=== PATIENT | male | born 1980 | race Two or more races ===

== ENCOUNTER 2024-01-25 06:28 | Emergency (ER) | payer OTHER ==
[~2024-01-25] VITALS: Ht 177.8 cm; Wt 106.6 kg
[~2024-01-25 06:28] MED LIST: DEMEROL IM; GLUMETZA1000 MG; PERCOCET 7.5-31 EACH PO; PYRIDIUM DS200 MG PO; STONEX PO; TAMS0.4C PO; TORADOL60 MG IM
[2024-01-25] MEDS ORDERED: SYNJARDY 12.5-1 EACH PO (07:19)
[2024-01-25] MEDS ORDERED: LOSARTAN-HCTZ1 EAC2 PO (07:20)
[2024-01-25] MEDS ORDERED: ROSUVASTATIN CAL5 MG PO (07:20)
[2024-01-25] MEDS ORDERED: OZEMPIC0.25 MG/02 SQ (07:24)
[2024-01-25] MEDS ORDERED: KETOROLAC TROMETHAMINE 30 MG VIAL IV STA (07:43)
[2024-01-25] MEDS ORDERED: PROMETHAZINE HCL 25 MG/ML AMPUL IM STA (07:44)
[2024-01-25] MEDS ORDERED: MEPERIDINE HCL/PF 25 MG/ML VIAL IM STA (07:44)
[2024-01-25 08:42] LABS: CALCIUM 9.1 mg/dL (8.5-10.1); CREATININE SERUM 0.95 mg/dL (0.70-1.30); GFR 85.73; POTASSIUM 3.05 mEq/L (3.5-5.1)
[2024-01-25 08:49] LABS: HEMATOCRIT 45.2 % (39.0-48.0); HEMOGLOBIN 15.6 g/dL (13-16.00); MEAN CELL VOLUME 84.6 fL (80.0-100.00); MEAN CORPUSCULAR HEMOGLOBIN 29.3 pg (27.00-32.0); MEAN CORPUSCULAR HGB CONC 34.6 g/dl (32.0-36.0); PLATELET COUNT 202 K/uL (150-450); RED BLOOD COUNT 5.34 M/uL (4.00-6.00)
[2024-01-25 09:42] LABS: PH,URINE 5.5 (5.0-8.0); URINE APPEARANCE Clear; URINE BILIRRUBIN Negative (NEGATIVE); URINE BLOOD Negative; URINE COLOR Yellow; URINE LEUKOCYTE Negative; URINE NITRATE Negative; URINE PROTEIN Negative (NEGATIVE); URINE UROBILINOGEN 0.2 E.U./dl
[2024-01-25 09:43] LABS: URINE RBC 5.3 uL (0.0-20.8); URINE WBC 5.3 uL (0.0-23.2)
[2024-01-25 09:46] LABS: URINE BACTERIA 3.6 uL (0.0-1933); URINE CAST 0.14 uL (0.0-1.40); URINE EPITHELIAL CELLS 1.1 uL (0.0-38.8); URINE GLUCOSE >=1000 MG/DL (NEGATIVE); URINE KETONE 40 (NEGATIVE)
== END 2024-01-25 10:12 | disposition home or self-care (01) ==
LOC: ER 06:30
DX: N20.9 Urinary calculus, unspecified (principal); K80.20 Calculus of gallbladder without cholecystitis without obstruction; K76.0 Fatty (change of) liver, not elsewhere classified; K40.90 Unilateral inguinal hernia, without obstruction or gangrene, not specified as recurrent

== ENCOUNTER 2024-08-05 08:30 | Day surgery (SDC) | payer OTHER ==
[2024-07-30 10:52] LABS: BASO % 0.9 % (0.1-1.2); EOS % 4.3 % (0.7-7.0); HEMATOCRIT 49.7 % (40.1-51.0); HEMOGLOBIN 16.2 g/dL (13.7-17.5); LYMPH # 1.81 (1.18-3.74); LYMPH % 25.7 % (19.3-53.1); MONO # 0.46 (0.24-0.82); MONO % 6.5 % (4.7-12.5); NEUT # 4.41 (1.56-6.13); NEUT % 62.5 % (34.0-71.1); PLATELET COUNT 257 K/uL (163-369); RED BLOOD COUNT 5.79 M/uL (4.63-6.08); RED CELL DISTRIBUTION WIDTH 13.2 % (11.6-14.4)
[2024-07-30 11:08] LABS: INR 1.02; PARTIAL THROMBOPLASTIN TIME 25.6 SECONDS (22.0-34.0); PROTHROMBIN TIME 11.1 SECONDS (9.0-11.5)
[2024-07-30 11:22] LABS: PH,URINE 5.5 (5.0-8.0); URINE APPEARANCE Clear; URINE BILIRRUBIN Negative (NEGATIVE); URINE BLOOD Negative; URINE COLOR Yellow; URINE KETONE Trace (NEGATIVE); URINE LEUKOCYTE Negative; URINE NITRATE Negative; URINE PROTEIN Negative (NEGATIVE); URINE UROBILINOGEN 0.2 E.U./dl
[2024-07-30 11:26] LABS: URINE BACTERIA 6.1 uL (0.0-1933); URINE RBC 5.7 uL (0.0-20.8)
[2024-07-30 11:35] LABS: URINE CAST 0.73 uL (0.0-1.40); URINE EPITHELIAL CELLS 1.2 uL (0.0-38.8); URINE GLUCOSE >=1000 MG/DL (NEGATIVE)
[2024-07-30 12:08] LABS: ALBUMIN 4.2 gm/dL (3.4-5.0); BILIRUBIN TOTAL 0.85 mg/dL (0.3-1.2); CALCIUM 9.8 mg/dL (8.5-10.1); CREATININE SERUM 0.83 mg/dL (0.70-1.30); GFR 99.74; GLOBULINA 4.2 G/DL (2.4-3.5); POTASSIUM 4.01 mEq/L (3.5-5.1); TOTAL PROTEIN 8.4 gm/dL (6.4-8.2)
[~2024-08-05 08:30] MED LIST changes: +LOSARTAN POTASS50 MG PO; +LOSARTAN-HCTZ1 EAC2 PO; +OZEMPIC0.25 MG/02 SQ; +ROSUVASTATIN CAL5 MG PO; +SYNJARDY 12.5-1 EACH PO
[2024-08-05] MEDS ORDERED: CEFAZOLIN SODIUM 1,000 MG VIAL ONE (12:25)
[2024-08-05] MEDS ORDERED: MORPHINE SULFATE 4 MG/ML VIAL IV ONE ×2 (16:15→16:45)
== END 2024-08-05 18:10 | disposition home or self-care (01) ==
LOC: CIR.AMB 08:30
PROVIDERS: ATTEND Surgery
DX: K40.90 Unilateral inguinal hernia, without obstruction or gangrene, not specified as recurrent (principal)

== ENCOUNTER → 2024-10-22 10:34 | Outpatient (CLI) | payer OTHER ==
[2024-10-22 11:23] LABS: BASO % 0.7 % (0.1-1.2); EOS # 0.12 (0.04-0.54); EOS % 2.1 % (0.7-7.0); LYMPH # 1.61 (1.18-3.74); LYMPH % 28.1 % (19.3-53.1); MEAN PLATELET VOLUME 9.60 fl (9.4-12.4); MONO # 0.38 (0.24-0.82); MONO % 6.6 % (4.7-12.5); NEUT # 3.56 (1.56-6.13); NEUT % 62.3 % (34.0-71.1); RED CELL DISTRIBUTION WIDTH 12.9 % (11.6-14.4); URINE APPEARANCE Clear; URINE BILIRRUBIN Negative (NEGATIVE); URINE BLOOD Trace; URINE COLOR Yellow; URINE KETONE Trace (NEGATIVE); URINE LEUKOCYTE Negative; URINE NITRATE Negative; URINE PROTEIN Negative (NEGATIVE); URINE UROBILINOGEN 1.0 E.U./dl
[2024-10-22 11:24] LABS: URINE BACTERIA 7.2 uL (0.0-1933); URINE RBC 8.7 uL (0.0-20.8); URINE WBC 3.0 uL (0.0-23.2)
[2024-10-22 11:30] LABS: URINE CAST 0.00 uL (0.0-1.40); URINE EPITHELIAL CELLS 1.3 uL (0.0-38.8); URINE GLUCOSE >=1000 MG/DL (NEGATIVE)
[2024-10-22 11:58] LABS: INR 1.01
[2024-10-22 12:27] LABS: ALT/SGPT 34.0 U/L (12-78); AST/SGOT 18.0 U/L (15-37); BILIRUBIN TOTAL 1.21 mg/dL (0.3-1.2); BUN CREA RATIO 15.0 (7.0-25.0); CREATININE SERUM 0.74 mg/dL (0.70-1.30); GFR 113.87; GLOBULINA 3.9 G/DL (2.4-3.5); GLUCOSE FASTING 103.0 mg/dL (65-100); OSMOLALITY SERUM 286.0 MOSM/KG (275-295)
== END | disposition home or self-care (01) ==
LOC: LAB 10:34
PROVIDERS: ATTEND Surgery
DX: D65 Disseminated intravascular coagulation [defibrination syndrome] (principal); I10 Essential (primary) hypertension; Z01.818 Encounter for other preprocedural examination

== ENCOUNTER 2024-10-26 08:00 | Day surgery (SDC) | payer OTHER ==
[2024-10-23 10:49] VITALS: BP 107/73
[~2024-10-26] VITALS: Ht 177.8 cm; Wt 102.1 kg
[2024-10-26] MEDS ORDERED: CEFAZOLIN SODIUM 1,000 MG VIAL IV SCH (11:00)
[2024-10-26] MEDS ORDERED: SUGAMMADEX SODIUM 200 MG/2 ML VIAL IV ONE (12:00)
[2024-10-26] MEDS ORDERED: MORPHINE SULFATE 4 MG/ML VIAL IV ONE ×4 (12:15→13:10)
== END 2024-10-26 14:15 | disposition home or self-care (01) ==
LOC: CIR.AMB 08:00
PROVIDERS: ATTEND Surgery
DX: K81.1 Chronic cholecystitis (principal)